=== PATIENT | female | born 1940 | race Caucasian/White ===

== ENCOUNTER 2016-04-13 23:27 | Observation (INO) | payer MEDICARE, BC ==
[~2016-04-13] VITALS: Ht 165.1 cm; Wt 75.0 kg
[~2016-04-13 23:27] MED LIST: ALBU6.7H INH; ALPR.25 PO; ASCO500C PO; BUDE100T PO; BUTACAP4 PO; COLE625 PO; ESTR.625 PO; LOMO PO; MEDR4PAK3 PO; PROZ20CA11 PO; SYNT75TA PO; ZOLP10TA3 PO
[2016-04-14] VITALS (11 sets, daily range): BP systolic 132–165; BP diastolic 67–89; PULSE 73–96; RESP 16–20; TEMP 97.8–101; O2SAT 93–98
[2016-04-14] MEDS ORDERED: SODIUM CHLORIDE 0.9% FLUSH 5 ML FLUSH IVF PRN (01:15)
--- NOTE | 2016-04-14 01:20 | PD ---
HPI Chief Complaint: GI Complaint Time Seen by Provider: 00:46 Travel History International Travel<30 days: No Contact w/Intl Traveler<30days: No Traveled to known affect area: No History of Present Illness HPI The patient is 75 year old female who presents to the [facility] emergency department with a history of nausea, vomiting, and diarrhea that began at 6 PM today. She reports that just prior to the onset of the symptoms she began to have generalized weakness at work. She reports that she ate dinner and then the symptoms began. She denies any known sick contacts. She denies any recent antibiotic use. She denies any foreign travel in the last 6 months or any unusual food intake. She reports that her stool has been watery and yellow. She reports that she's had too many episodes of diarrhea to count. She reports that she's had too many episodes of vomiting to count. She reports that she has abdominal cramping associated with this from the umbilicus down to the suprapubic area in the midline. The patient arrives with a fever with a MAXIMUM TEMPERATURE of 100.5. The patient reports that over the last 2 months she has had some bladder pain when her bladder becomes distended at night. She denies having any other dysuria, urinary frequency, or urinary urgency. The patient denies any other recent fevers, cough, congestion, neck pain, chest pain , shortness of breath, or neurologic symptoms. [facility] Past Medical History Narrative Medical The patient's past medical history is significant for anxiety and depression, history of hypothyroid disorder, history of headaches, irritable bowel syndrome. Anxiety: Yes Headaches: Yes Immunizations Current: Yes Thyroid Disease: Yes Past Surgical History Narrative Surgical The patient's past surgical history is significant for an appendectomy, cholecystectomy, hysterectomy, bladder lift Appendectomy: Yes Cholecystectomy: Yes Gynecologic Surgery: Yes (BLADDER LIFT) Hysterectomy: Yes (COMPLETE) Social History Alcohol Use: Yes Tobacco Use: No Substance Use: No Allergies-Medications (Allergen,Severity, Reaction): Coded Allergies: Codeine (Verified Allergy, Severe, Nausea/Vomiting, 07/06/15) Uncoded Allergies: pain medications (Allergy, Unknown, 07/06/15) Reported Meds & Prescriptions Reported Meds & Active Scripts Active Reported Prozac (Fluoxetine HCl) 20 Mg Cap 40 Mg PO DAILY Butal/Asa/Caff 1 Cap PO DAILY PRN Xanax 0.25 Mg (Alprazolam) Alprazolam 0.25 mg Tab 1 Tab PO TID Zolpidem Tartrate 10 Mg Tab 10 Mg PO HS Lomotil (Diphenoxylate HCl/Atropine) 1 Tab Tab 1 Tab PO BID Bupropion Hcl (Bupropion HCl) 100 Mg Tab 100 Mg PO BID Synthroid 75 mcg (Levothyroxine Sodium) 75 Mcg Tab 75 Mcg PO DAILY Welchol 625 Mg625 Mg 625 Mg Tab 1,250 Mg PO BID Review of Systems Except as stated in HPI: all other systems reviewed are Neg General / Constitutional: No: Fever Eyes: No: Visual changes HENT: No: Headaches Cardiovascular: No: Chest Pain or Discomfort Respiratory: No: Shortness of Breath Gastrointestinal: Positive: Nausea, Vomiting, Diarrhea, Abdominal Pain, Changes in Bowel Habits, No: Hematemesis, Hematochezia, Indigestion, Loss of Appetite Genitourinary: No: Dysuria Musculoskeletal: No: Pain Skin: No Rash Neurologic: No: Weakness Psychiatric: No: Depression Endocrine: No: Polydipsia Hematologic/Lymphatic: No: Easy Bruising Physical Exam Narrative General: The patient is a well-developed well-nourished female, uncomfortable appearing on examination, she episode of diarrhea on arrival back to the room. Head and Neck exam: Head is normocephalic atraumatic. Eyes: Pupils are equal round and reactive to light. Nose: Midline septum with pink mucous membranes Mouth: Dentition unremarkable. Tacky mucus membranes. Posterior oropharynx is not erythematous. No tonsillar hypertrophy. Uvula midline. Airway patent. Neck: No palpable lymphadenopathy. No nuchal rigidity. No thyromegaly. Cardiovascular: Regular rate and rhythm without murmurs, gallops, or rubs. Lungs: Clear to auscultation bilaterally. No wheezes, rhonchi, or rales. Abdomen: Soft, with tenderness on palpation along the lower aspect of the abdomen just below the umbilicus, no other tenderness on palpation of the other quadrants of the abdomen. No guarding, rebound, or rigidity. No tenderness on palpation of McBurney's point. Normal bowel sounds are audible. Negative Jimenes's sign. Extremities: No clubbing, cyanosis, or edema. 2+ pulses in all 4 extremities. No calf tenderness on palpation. Back: No spinous process tenderness to palpation. No costovertebral angle tenderness to palpation. Neurologic Exam: Grossly nonfocal. Skin Exam: No rash noted. Intact skin that is warm and dry. Data Data Last Documented VS Vital Signs Date Time Temp Pulse Resp B/P Pulse Ox O2 Delivery O2 Flow Rate FiO2 04/14/16 03:04 90 16 165/89 98 Room Air 04/14/16 01:20 100.5 Orders Complete Blood Count With Diff (04/14/16 00:56) Comprehensive Metabolic Panel (04/14/16 00:56) Urinalysis - C+S If Indicated (04/14/16 00:56) Iv Access Insert/Monitor (04/14/16 00:56) Oxygen Administration (04/14/16 00:56) Oximetry (04/14/16 00:56) Lipase (04/14/16 00:56) Lactic Acid (04/14/16 00:56) Influenzae A/B Antigen (04/14/16 00:56) B-Type Natriuretic Peptide (04/14/16 00:56) Coag Profile (04/14/16 00:56) Blood Culture (04/14/16 01:04) Ct Abd/Pel W Iv Contrast(Rout) (04/14/16 01:06) Ecg Monitoring (04/14/16 01:06) Sodium Chloride 0.9% Flush (Ns Flush) (04/14/16 01:15) Sodium Chlor 0.9% 1000 Ml Inj (Ns 1000 M (04/14/16 01:45) Ondansetron Inj (Zofran Inj) (04/14/16 01:45) Ketorolac Inj (Toradol Inj) (04/14/16 01:45) Iohexol 350 Inj (Omnipaque 350 Inj) (04/14/16 02:28) Sodium Chlor 0.9% 1000 Ml Inj (Ns 1000 M (04/14/16 02:45) Lactic Acid Sepsis Protocol (04/14/16 02:38) Stool Wbc (Leukocytes) (04/14/16 03:01) Enteric Path (Stool) (04/14/16 03:01) C Diff Toxin Pcr (04/14/16 03:01) Place In Observation (04/14/16 ) Vital Signs (Adult) Q4H (04/14/16 03:06) Activity Oob With Assistance (04/14/16 03:06) ^ [employer] Lieutenant / Telemetry .CONTINUOUS (04/14/16 03:06) Diet Npo (04/14/16 Breakfast) Sodium Chlor 0.9% 1000 Ml Inj (Ns 1000 M (04/14/16 03:06) Sodium Chloride 0.9% Flush (Ns Flush) (04/14/16 03:15) Sodium Chloride 0.9% Flush (Ns Flush) (04/14/16 09:00) Ondansetron Inj (Zofran Inj) (04/14/16 03:15) Basic Metabolic Panel (Bmp) (04/15/16 06:00) Complete Blood Count With Diff (04/15/16 06:00) Scd Bilateral/Knee High JEANETTE.BID (04/14/16 03:06) Naloxone Inj (Narcan Inj) (04/14/16 03:15) Ketorolac Inj (Toradol Inj) (04/14/16 03:15) Lorazepam Inj (Ativan Inj) (04/14/16 03:45) Admit Order (Ed Use Only) (04/14/16 03:32) Labs Laboratory Tests Test 04/14/16 04/14/16 04/14/16 01:05 01:10 03:05 B-Type Natriuretic Peptide 51 PG/ML White Blood Count 10.3 TH/MM3 Red Blood Count 4.79 MIL/MM3 Hemoglobin 14.3 GM/DL Hematocrit 41.3 % Mean Corpuscular Volume 86.2 FL Mean Corpuscular Hemoglobin 29.8 PG Mean Corpuscular Hemoglobin 34.5 % Concent Red Cell Distribution Width 14.4 % Platelet Count 194 TH/MM3 Mean Platelet Volume 7.9 FL Neutrophils (%) (Auto) 92.7 % Lymphocytes (%) (Auto) 2.8 % Monocytes (%) (Auto) 3.8 % Eosinophils (%) (Auto) 0.6 % Basophils (%) (Auto) 0.1 % Neutrophils # (Auto) 9.6 TH/MM3 Lymphocytes # (Auto) 0.3 TH/MM3 Monocytes # (Auto) 0.4 TH/MM3 Eosinophils # (Auto) 0.1 TH/MM3 Basophils # (Auto) 0.0 TH/MM3 CBC Comment DIFF FINAL Differential Comment Prothrombin Time 10.1 SEC Prothromb Time International 0.9 RATIO Ratio Activated Partial 19.9 SEC Thromboplast Time Sodium Level 140 MEQ/L Potassium Level 3.8 MEQ/L Chloride Level 107 MEQ/L Carbon Dioxide Level 18.1 MEQ/L Anion Gap 15 MEQ/L Blood Urea Nitrogen 21 MG/DL Creatinine 0.82 MG/DL Estimat Glomerular Filtration 68 ML/MIN Rate Random Glucose 139 MG/DL Lactic Acid Level 3.4 mmol/L 3.2 mmol/L Calcium Level 9.1 MG/DL Total Bilirubin 0.4 MG/DL Aspartate Amino Transf 27 U/L (AST/SGOT) Alanine Aminotransferase 27 U/L (ALT/SGPT) Alkaline Phosphatase 87 U/L Total Protein 7.6 GM/DL Albumin 4.1 GM/DL Lipase 136 U/L MDM Medical Decision Making Medical Screen Exam Complete: Yes Emergency Medical Condition: Yes Medical Record Reviewed: Yes Interpretation(s) Last Impressions Abdomen/Pelvis CT 04/14/16 0106 Signed Impressions: Service Date/Time: Thursday, April 14, 2016 02:10 - CONCLUSION: 1. Mildly distended proximal small bowel without a focal transition point or obstructing mass/lesion. 2. Prior cholecystectomy. Jorge Estrada Jr., MD Differential Diagnosis Acute pancreatitis, versus diverticulitis, versus gastroenteritis, versus dehydration, versus electrolyte abnormality, versus ischemic bowel Narrative Course During the course of the patients emergency department visit, the patients history, examination, and differential diagnosis were reviewed with the patient. The patient had IV access obtained and blood work sent for analysis. The patient was placed on a cardiac rehabilitation program director with oximetry and frequent blood pressure monitoring. The patient was started on normal saline 1 L IV fluid bolus. The patient had a lactic acid ordered, blood cultures 2 were ordered. The patient was given Zofran 4 mg IV. The patients laboratory studies were reviewed and remarkable for a white count of 10.3, hemoglobin 14.3, platelets 194 with 92.7 neutrophils, lymphocytes 2.8, CMP is remarkable for CO2 of 18.1, BUN 21, lupus 139, lactic acid 3.4, lipase 136, BNP is 51. The patient's lactic acid will be repeated in 2 hours. The patient was given a second liter of normal saline IV fluids. PT PTT unremarkable. Radiology studies were reviewed and remarkable for a CT scan of the abdomen and pelvis that shows a mildly distended proximal small bowel without focal transition point or obstructing mass or lesion. The patient continued to have frequent episodes of diarrhea. Stool was sent for stool studies including C. difficile toxin. The patient will be admitted to the hospital for continued IV fluids and pain management. The patient was agreeable with this plan. The patient reported feeling anxious and was given Ativan 0.5 mg IV times one. The patients results were discussed with the patient, including the plan of care. I explained that further testing and/ or monitoring is indicated based on the patients history, examination, and/ or laboratory findings. Therefore, I recommended admission for additional evaluation. The patient expressed understanding and was agreeable with this plan. The patient was admitted to the hospital in stable condition and sent to a bed under the care of the [facility]. Physician Communication Physician Communication The patient's case is discussed with Dr. Burrows who did agree to admit the patient for further evaluation and treatment at this time. Diagnosis Primary Impression: Abdominal pain Qualified Code: R10.30 - Lower abdominal pain Additional Impression: Nausea vomiting and diarrhea Admitting Information Admitting Physician Requests: Jo Ann Pino MD Apr 14, 2016 01:20
[2016-04-14 01:26] LABS: AUTOMATED NEUTROPHIL # 9.6 TH/MM3 (1.8-7.7); BASOPHIL % 0.1 % (0.0-2.0); EOSINOPHIL # 0.1 TH/MM3 (0-0.4); EOSINOPHIL % 0.6 % (0.0-4.0); HEMATOCRIT 41.3 % (35.0-46.0); HEMO FLAGS DIFF FINAL; LYMPH % 2.8 % (9.0-44.0); LYMPHOCYTE # 0.3 TH/MM3 (1.0-4.8); MEAN CELL VOLUME 86.2 FL (80.0-100.0); MEAN CORPUSCULAR HEMOGLOBIN 29.8 PG (27.0-34.0); MEAN CORPUSCULAR HGB CONC 34.5 % (32.0-36.0); MONO % 3.8 % (0.0-8.0); NEUT % 92.7 % (16.0-70.0); PLATELET COUNT 194 TH/MM3 (150-450); RED BLOOD COUNT 4.79 MIL/MM3 (4.00-5.30); RED CELL DISTRIBUTION WIDTH 14.4 % (11.6-17.2); WHITE BLOOD COUNT 10.3 TH/MM3 (4.0-11.0)
[2016-04-14 01:40] LABS: ALT (GPT) 27 U/L (10-53); ANION GAP 15 MEQ/L (5-15); AST (GOT) 27 U/L (15-37); BICARBONATE 18.1 MEQ/L (21.0-32.0); BLOOD UREA NITROGEN 21 MG/DL (7-18); CHLORIDE 107 MEQ/L (98-107); GLOMERULAR FILTRATION RATE 68 ML/MIN (>89); POTASSIUM 3.8 MEQ/L (3.5-5.1); SODIUM (NA) 140 MEQ/L (136-145)
[2016-04-14 01:42] LABS: ALKALINE PHOSPHATASE 87 U/L (45-117); TOTAL BILIRUBIN ADULT 0.4 MG/DL (0.2-1.0)
[2016-04-14 01:45] LABS: APTT (PATIENT) 19.9 SEC (24.3-30.1); INTERNATIONAL NORMALIZED RATIO 0.9 RATIO; PROTHROMBIN TIME - PATIENT 10.1 SEC (9.8-11.6)
[2016-04-14] MEDS ORDERED: SODIUM CHLOR 0.9% 1000 ML INJ 1,000 ML IV ONE ×2 (01:45→02:45)
[2016-04-14] MEDS ORDERED: KETOROLAC TROMETHAMINE 30 MG/ML (IVP) VIAL IV PUSH ONE (01:45)
[2016-04-14] MEDS ORDERED: ONDANSETRON HCL 4 MG/2 ML VIAL IV ONE (01:45)
[2016-04-14] MEDS ORDERED: IOHEXOL 350 MG/ML 10 ML VIAL (for RAD DIAG) IV ONE (02:28)
--- NOTE | 2016-04-14 02:35 | RADRPT ---
EXAM DATE/TIME: 04/14/2016 02:10 [facility] COMPARISON: No previous studies available for comparison. INDICATIONS : Abdomen pain with nausea and vomiting. IV CONTRAST: 85 cc Omnipaque 350 (iohexol) IV ORAL CONTRAST: No oral contrast ingested. RADIATION DOSE: 11.52 CTDIvol (mGy) MEDICAL HISTORY : None SURGICAL HISTORY : Appendectomy. Hysterectomy.Cholecystectomy. ENCOUNTER: Initial ACUITY: 1 day PAIN SCALE: 10/10 LOCATION: Bilateral abdomen TECHNIQUE: Volumetric scanning of the abdomen and pelvis was performed. Using automated exposure control and ad justment of the mA and/or kV according to patient size, radiation dose was kept as low as reasonably achievable to obtain optimal diagnostic quality images. FINDINGS: LOWER LUNGS: The visualized lower lungs are clear. LIVER: Homogeneous density without lesion. There is no dilation of the biliary tree. Gallbladder is surgica lly absent. SPLEEN: Normal size without lesion. PANCREAS: Within normal limits. KIDNEYS: Normal in size and shape. There is no mass, stone or hydronephrosis. ADRENAL GLANDS: Within normal limits. VASCULAR: There is no aortic aneurysm. BOWEL/MESENTERY: Fluid-filled loops of mildly dilated proximal small bowel observed. No focal transition point. No rachel e air or free fluid. Colon and stomach are unremarkable. ABDOMINAL WALL: Within normal limits. RETROPERITONEUM: There is no lymphadenopathy. BLADDER: No wall thickening or mass. REPRODUCTIVE: Within normal limits. INGUINAL: There is no lymphadenopathy or hernia. MUSCULOSKELETAL: Within normal limits for patient age. CONCLUSION: 1. Mildly distended proximal small bowel without a focal transition point or obstructing mass/lesion. 2. Prior cholecystectomy. Jorge Estrada Jr., MD on April 14, 2016 at 2:30 Board Certified Radiologist. This report was verified electronically.
[2016-04-14] MEDS ORDERED: SODIUM CHLORIDE 0.9% FLUSH 5 ML FLUSH FLUSH PRN (03:15)
[2016-04-14] MEDS ORDERED: ONDANSETRON HCL 4 MG/2 ML VIAL IVP PRN (03:15)
[2016-04-14] MEDS ORDERED: NALOXONE HCL 0.4 MG/ML AMP IV PRN (03:15)
[2016-04-14] MEDS: SODIUM CHLOR 0.9% 1000 ML INJ 1,000 ML IV SCH ×2 (03:29→13:06)
[2016-04-14] MEDS ORDERED: LORazepam 2 MG/ML VIAL IV PUSH ONE (03:45)
[2016-04-14 05:36] LABS: LACTIC ACID GHOST NOT REPORTABLE
[2016-04-14] MEDS ORDERED: ALPR.25 PO (06:39)
[2016-04-14] MEDS ORDERED: BUTA1CAP5 PO (06:39)
[2016-04-14] MEDS ORDERED: LOMO2.5T PO (06:39)
[2016-04-14] MEDS ORDERED: PROZ40CA PO (06:39)
[2016-04-14] MEDS ORDERED: LEVO.075 PO (06:39)
[2016-04-14] MEDS ORDERED: WELC625T2 PO (06:39)
[2016-04-14] MEDS ORDERED: ZOLP10TA3 PO (06:39)
[2016-04-14] MEDS ORDERED: BUPR100T4 PO (06:39)
[2016-04-14] MEDS: KETOROLAC TROMETHAMINE 30 MG/ML (IVP) VIAL IV PUSH PRN ×2 (06:58→13:37)
[2016-04-14] MEDS: SODIUM CHLORIDE 0.9% FLUSH 5 ML FLUSH FLUSH SCH ×2 (08:38→21:00)
[2016-04-14] MEDS ORDERED: HYDROmorphone HCL PF 1 MG/ML VIAL IV PUSH PRN (10:15)
[2016-04-14] MEDS ORDERED: ZOLPIDEM TARTRATE 10 MG TAB PO PRN (10:15)
[2016-04-14] MEDS: PANTOPRAZOLE SODIUM 40 MG VIAL IV PUSH SCH ×2 (10:51→21:04)
[2016-04-14] MEDS: ALPRAZolam 0.25 MG TAB PO PRN ×3 (11:00→19:37)
[2016-04-14] MEDS ORDERED: CIPROFLOXACIN 400 MG PREMIX 200 ML IV SCH (12:00)
[2016-04-14 12:07] LABS: BICARBONATE 18.9 MEQ/L (21.0-32.0); POTASSIUM 3.3 MEQ/L (3.5-5.1)
[2016-04-14] MEDS: metroNIDAZOLE 500 MG INJ 100 ML IV SCH ×2 (12:07→21:03)
[2016-04-14 12:15] LABS: C. DIFF EPI 027 PRESUMPTIVE NEGATIVE (NEGATIVE); C. DIFF TOXIN PCR POSITIVE (NEGATIVE)
--- NOTE | 2016-04-14 13:35 | PD.CONS ---
HPI History of Present Illness This is a 75 year old white female with past medical history of hypothyroidism, anxiety who presents with one day history of nausea, vomiting diarrhea, lower abd pain. Stools studies (+) for C-diff. This is her first episode. Denies recent abx use, travel or suspicious foods. 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 symptoms started yesterday after eating dinner ( spaghetti with meat balls) at her daughter house, but no one else got sick. She did have a bologna sandwich for lunch. At first, she didn't feel right, then the diarrhea started and that was followed by vomiting. No more vomiting today, but diarrhea continued through out the night and today, too many to count. Report associated fever of 100 yesterday and lower abdominal cramps. Denies hematemesis, melena or hematochezia. CT showed Mildly distended proximal small bowel without a focal transition point or obstructing mass/ lesion. Last colonoscopy was 5 years ago and that was normal. (April Krueger) PFSH Past Medical History Hypothyroidism Anxiety IBS Past Surgical History Appendectomy knee surgery cholecystectomy hysterectomy (April Krueger) Coded Allergies: Codeine (Verified Allergy, Severe, Nausea/Vomiting, 07/06/15) Uncoded Allergies: pain medications (Allergy, Unknown, 07/06/15) Medications Current Medications Medications (Trade) Dose Ordered Sig/Xander Route Start Time Stop Time Status Last Admin (NS 1000 ml Inj) 1,000 ml @ 100 mls/hr Q10H IV 04/14/16 03:06 04/14/16 03:29 (NS Flush) 2 ml UNSCH PRN FLUSH 04/14/16 03:15 (NS Flush) 2 ml BID FLUSH 04/14/16 09:00 04/14/16 08:38 (Zofran Inj) 4 mg Q6H PRN IVP 04/14/16 03:15 04/14/16 03:30 (Narcan Inj) 0.4 mg UNSCH PRN IV 04/14/16 03:15 Ketorolac Tromethamine 15 mg 15 mg Q6H PRN IV PUSH 04/14/16 03:15 04/19/16 03:14 04/14/16 06:58 Ciprofloxacin/ Dextrose 200 ml @ 200 mls/hr Q12H IV 04/14/16 12:00 04/14/16 11:30 (Flagyl 500 Mg Inj) 100 ml @ 100 mls/hr Q8H IV 04/14/16 12:00 04/14/16 12:07 (Protonix Inj) 40 mg Q12HR IV PUSH 04/14/16 10:15 04/14/16 10:51 (Xanax) 0.25 mg Q4H PRN PO 04/14/16 10:15 04/14/16 11:00 (Wellbutrin) 100 mg BID PO 04/14/16 21:00 (PROzac) 40 mg DAILY PO 04/15/16 09:00 (Synthroid) 75 mcg DAILY@06 PO 04/15/16 06:00 (Ambien) 10 mg HS PRN PO 04/14/16 10:15 (Dilaudid Pf Inj) 0.5 mg Q4H PRN IV PUSH 04/14/16 10:15 Family History Father had colon cancer Social History Drinks on the weekend Quit smoking 30 years ago No illicit drug use (April Krueger) Review of Systems Constitutional: COMPLAINS OF: Fatigue, Fever, Chills Endocrine: DENIES: Polyuria Eyes: DENIES: Double Vision Ears, nose, mouth, throat: DENIES: Hoarseness Respiratory: DENIES: Shortness of breath Cardiovascular: DENIES: Lower Extremity Edema Gastrointestinal: COMPLAINS OF: Abdominal pain, Diarrhea, Nausea, Vomiting, DENIES: Black stools, Bloody stools, Constipation, Difficulty Swallowing, Anorexia, Odynophagia, Swelling of Abdomen, Heartburn, Hematemesis Genitourinary: DENIES: Hematuria Musculoskeletal: DENIES: Neck pain Integumentary: DENIES: Jaundice Hematologic/lymphatic: DENIES: Bruising Immunologic/allergic: DENIES: Eczema Neurologic: DENIES: Abnormal gait Psychiatric: COMPLAINS OF: Anxiety (April Krueger) GI Exam Vitals I&O Vital Signs Date Time Temp Pulse Resp B/P Pulse Ox O2 Delivery O2 Flow Rate FiO2 04/14/16 09:50 99.0 81 16 149/70 93 Room Air 04/14/16 07:50 16 04/14/16 07:15 99.0 96 18 152/67 98 Room Air 04/14/16 05:41 101.0 75 18 148/78 96 Room Air 04/14/16 03:04 90 16 165/89 98 Room Air 04/14/16 01:22 96 Room Air 04/14/16 01:22 18 04/14/16 01:20 100.5 95 18 160/78 96 Imaging Last Impressions Abdomen/Pelvis CT 04/14/16 0106 Signed Impressions: Service Date/Time: Thursday, April 14, 2016 02:10 - CONCLUSION: 1. Mildly distended proximal small bowel without a focal transition point or obstructing mass/lesion. 2. Prior cholecystectomy. Jorge Estrada Jr., MD Laboratory Test 04/14/16 04/14/16 04/14/16 04/14/16 01:05 01:10 03:05 06:10 B-Type Natriuretic Peptide 51 PG/ML White Blood Count 10.3 TH/MM3 Red Blood Count 4.79 MIL/MM3 Hemoglobin 14.3 GM/DL Hematocrit 41.3 % Mean Corpuscular Volume 86.2 FL Mean Corpuscular Hemoglobin 29.8 PG Mean Corpuscular Hemoglobin 34.5 % Concent Red Cell Distribution Width 14.4 % Platelet Count 194 TH/MM3 Mean Platelet Volume 7.9 FL Neutrophils (%) (Auto) 92.7 % Lymphocytes (%) (Auto) 2.8 % Monocytes (%) (Auto) 3.8 % Eosinophils (%) (Auto) 0.6 % Basophils (%) (Auto) 0.1 % Neutrophils # (Auto) 9.6 TH/MM3 Lymphocytes # (Auto) 0.3 TH/MM3 Monocytes # (Auto) 0.4 TH/MM3 Eosinophils # (Auto) 0.1 TH/MM3 Basophils # (Auto) 0.0 TH/MM3 CBC Comment DIFF FINAL Differential Comment Prothrombin Time 10.1 SEC Prothromb Time International 0.9 RATIO Ratio Activated Partial 19.9 SEC Thromboplast Time Sodium Level 140 MEQ/L Potassium Level 3.8 MEQ/L Chloride Level 107 MEQ/L Carbon Dioxide Level 18.1 MEQ/L Anion Gap 15 MEQ/L Blood Urea Nitrogen 21 MG/DL Creatinine 0.82 MG/DL Estimat Glomerular Filtration 68 ML/MIN Rate Random Glucose 139 MG/DL Lactic Acid Level 3.4 mmol/L 3.2 mmol/L 2.6 mmol/L Calcium Level 9.1 MG/DL Total Bilirubin 0.4 MG/DL Aspartate Amino Transf 27 U/L (AST/SGOT) Alanine Aminotransferase 27 U/L (ALT/SGPT) Alkaline Phosphatase 87 U/L Total Protein 7.6 GM/DL Albumin 4.1 GM/DL Lipase 136 U/L Stool C. difficile Toxin (PCR) POSITIVE Stl C. difficile Toxin PRESUMPTIVE Epiderm 027 NEGATIVE Test 04/14/16 11:21 Sodium Level 141 MEQ/L Potassium Level 3.3 MEQ/L Chloride Level 111 MEQ/L Carbon Dioxide Level 18.9 MEQ/L Anion Gap 11 MEQ/L Blood Urea Nitrogen 17 MG/DL Creatinine 0.70 MG/DL Estimat Glomerular Filtration 82 ML/MIN Rate Random Glucose 131 MG/DL Calcium Level 7.7 MG/DL Date/Time Procedure Status Source Growth 04/14/16 03:05 Stool Pus (EUGENIA) Received Stool Stool Pending 04/14/16 03:05 Received Stool Stool Pending 04/14/16 01:10 Aerobic Blood Culture Received Blood Peripheral Pending 04/14/16 01:10 Anaerobic Blood Culture Received Blood Peripheral Pending 04/14/16 01:05 Influenza Types A,B Antigen (EUGENIA) - Final Complete Nasal Aspirate NEGATIVE FOR FLU A AND B ANTIGEN.... Physical Examination HEENT: normocephalic; atraumatic; no jaundice. NECK: Neck is supple, no JVD, no lymphadenopathy. CHEST: Chest is clear to auscultation and percussion. CARDIAC: Regular rate and rhythm with no murmur gallop or rubs. ABDOMEN: Soft, nondistended, lower abd tenderness ; no hepatosplenomegaly; bowel sounds are present in all four quadrants. EXTREMITIES: No clubbing, cyanosis, or edema. SKIN: Normal; no rash; no jaundice. SLAB WORKER: No focal deficits; alert and oriented times three. (April Krueger) Assessment and Plan Plan - C-diff colitis, (+) for C-diff PCR, (-) for tox Epid 027. Stool cx pending Denies recent abx use, travel or suspicious foods. 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 symptoms started yesterday after eating dinner at her daughter house, but no one else got sick. At first, she didn't feel right, then the diarrhea started and that was followed by vomiting. No more vomiting today, but diarrhea continued through out the night and today, too many to count. Report associated fever of 100 yesterday and lower abdominal cramps. Denies hematemesis, melena or hematochezia. CT showed Mildly distended proximal small bowel without a focal transition point or obstructing mass/lesion. Last colonoscopy was 5 years ago and that was normal. - Hypokalemia secondary to severe diarrhea per attending - hypothyroidism, anxiety per attending Plan: - Clear liquids - Await stool cx - DC Cipro - Cont. Flagyl - Will add Vanco - Monitor labs - Supportive care - Patient seen and examined by Dr. Gonzalez and myself and this note is written on his behalf. (April Krueger) Physician Comments Patient was seen and examined, agree with above note and plan, labs for AM, continue Abx (Arnav Gonzalez MD) April Krueger Apr 14, 2016 13:35 Arnav Gonzalez MD Apr 14, 2016 20:40
--- NOTE | 2016-04-14 16:19 | EKG ---
Date Performed: 04/14/2016 Time Performed: 12:20:11 PTAGE: 75 years EKG: Sinus rhythm NORMAL ECG INTERPRETATION BASED ON A DEFAULT AGE OF 40 YEARS NO SIGNIFICANT CHANGE FROM PRIOR ELECTR OCARDIOGRAM. PREVIOUS TRACING : 07/06/2015 23.54 DOCTOR: Maximus Velasco Interpretating Date/Time 04/14/2016 16:18:50
[2016-04-14] MEDS: VANCOMYCIN 500 MG VIAL (FOR ORAL USE ONLY) PO SCH ×2 (17:37→21:04)
--- NOTE | 2016-04-14 18:44 | HHI.HP ---
[facility] Chris Ayala MD Admission Diagnosis DEHYDRATION, DIARRHEA, SMALL BOWEL DILITATION Diagnoses: Travel History International Travel<30 Days: No Contact w/Intl Traveler <30 Da: No Traveled to Known Affected Are: No History of Present Illness Patient is a pleasant 75-year-old female with a history of depression, hypothyroidism, anxiety, past smoker with [id number] history of smoking, who presents with acute nausea, nonbloody vomiting, crampy, nonradiating bilateral lower abdominal pain, chills, and profuse watery diarrhea. She says that it suddenly hit her while she was driving back from her daughter's house around 7 PM last night. She had spaghetti with her family, however nobody else is sick. She did have a bologna sandwich for lunch. She denies any chest pain, shortness of breath, lightheadedness, dizziness, however does report diffuse weakness. She reports previously feeling fine. She denies any recent course of antibiotics. She denies any history of Clostridium difficile. CT abdomen shows duodenal thickening. [place] virus assay of stool is positive. Clostridium difficile PCR of stool is also positive. Review of Systems Other performed and negative except for history of present illness and past medical history. Past Family Social History Past Medical History Depression Chronic headaches. She takes Fioricet for this Hypothyroidism on replacement Anxiety IBS Past Surgical History Appendectomy knee surgery cholecystectomy hysterectomy bladder lift Reported Medications Reported Meds & Active Scripts Active Reported Prozac (Fluoxetine HCl) 20 Mg Cap 40 Mg PO DAILY Butal/Asa/Caff 1 Cap PO DAILY PRN Xanax 0.25 Mg (Alprazolam) Alprazolam 0.25 mg Tab 1 Tab PO TID Zolpidem Tartrate 10 Mg Tab 10 Mg PO HS Lomotil (Diphenoxylate HCl/Atropine) 1 Tab Tab 1 Tab PO BID Bupropion Hcl (Bupropion HCl) 100 Mg Tab 100 Mg PO BID Synthroid 75 mcg (Levothyroxine Sodium) 75 Mcg Tab 75 Mcg PO DAILY Welchol 625 Mg625 Mg 625 Mg Tab 1,250 Mg PO BID Allergies: Coded Allergies: Codeine (Verified Allergy, Severe, Nausea/Vomiting, 07/06/15) Uncoded Allergies: pain medications (Allergy, Unknown, 07/06/15) Family History Father had colon cancer , passing away at age 70 mother from heart disease at age 69 Social History Patient smoked 2 packs per day from age 23 to age 42. [id number] history. Patient drinks occasionally, 2 drinks about twice per week Denies any illicit drugs. Physical Exam Vital Signs Vital Signs Date Time Temp Pulse Resp B/P Pulse Ox O2 Delivery O2 Flow Rate FiO2 04/14/16 17:00 132/75 04/14/16 14:36 73 04/14/16 14:26 99.5 75 20 160/71 93 04/14/16 09:50 99.0 81 16 149/70 93 Room Air 04/14/16 07:50 16 04/14/16 07:15 99.0 96 18 152/67 98 Room Air 04/14/16 05:41 101.0 75 18 148/78 96 Room Air 04/14/16 03:04 90 16 165/89 98 Room Air 04/14/16 01:22 96 Room Air 04/14/16 01:22 18 04/14/16 01:20 100.5 95 18 160/78 96 Physical Exam GENERAL: This is a well-nourished, well-developed patient,appears uncomfortable. Alert and oriented x3. SKIN: No rashes, ecchymoses or lesions. Cool and dry. HEAD: Atraumatic. Normocephalic. No temporal or scalp tenderness. EYES: Pupils equal round and reactive. Extraocular motions intact. No scleral icterus. No injection or drainage. ENT: Nose without bleeding, purulent drainage or septal hematoma. Throat without erythema, tonsillar hypertrophy or exudate. Uvula midline. Airway patent. NECK: Trachea midline. No JVD or lymphadenopathy. Supple, nontender, no meningeal signs. CARDIOVASCULAR: Regular rate and rhythm without murmurs, gallops, or rubs. RESPIRATORY: Clear to auscultation. Breath sounds equal bilaterally. No wheezes , rales, or rhonchi. GASTROINTESTINAL: mild diffuse abdominal tenderness. Positive bowel sounds. No rebound or guarding.no abdominal bruit. MUSCULOSKELETAL: Extremities without clubbing, cyanosis, or edema. No joint tenderness, effusion, or edema noted. No calf tenderness. Negative Homans sign bilaterally. NEUROLOGICAL: Awake and alert. Cranial nerves II through XII intact. Motor and sensory grossly within normal limits. Five out of 5 muscle strength in all muscle groups. Normal speech. Laboratory Laboratory Tests Test 04/14/16 04/14/16 04/14/16 04/14/16 01:05 01:10 03:05 06:10 B-Type Natriuretic Peptide 51 White Blood Count 10.3 Red Blood Count 4.79 Hemoglobin 14.3 Hematocrit 41.3 Mean Corpuscular Volume 86.2 Mean Corpuscular Hemoglobin 29.8 Mean Corpuscular Hemoglobin 34.5 Concent Red Cell Distribution Width 14.4 Platelet Count 194 Mean Platelet Volume 7.9 Neutrophils (%) (Auto) 92.7 Lymphocytes (%) (Auto) 2.8 Monocytes (%) (Auto) 3.8 Eosinophils (%) (Auto) 0.6 Basophils (%) (Auto) 0.1 Neutrophils # (Auto) 9.6 Lymphocytes # (Auto) 0.3 Monocytes # (Auto) 0.4 Eosinophils # (Auto) 0.1 Basophils # (Auto) 0.0 CBC Comment DIFF FINAL Differential Comment Prothrombin Time 10.1 Prothromb Time International 0.9 Ratio Activated Partial 19.9 Thromboplast Time Sodium Level 140 Potassium Level 3.8 Chloride Level 107 Carbon Dioxide Level 18.1 Anion Gap 15 Blood Urea Nitrogen 21 Creatinine 0.82 Estimat Glomerular Filtration 68 Rate Random Glucose 139 Lactic Acid Level 3.4 3.2 2.6 Calcium Level 9.1 Total Bilirubin 0.4 Aspartate Amino Transf 27 (AST/SGOT) Alanine Aminotransferase 27 (ALT/SGPT) Alkaline Phosphatase 87 Total Protein 7.6 Albumin 4.1 Lipase 136 Stool C. difficile Toxin (PCR) POSITIVE Stl C. difficile Toxin PRESUMPTIVE Epiderm 027 NEGATIVE Test 04/14/16 11:21 Sodium Level 141 Potassium Level 3.3 Chloride Level 111 Carbon Dioxide Level 18.9 Anion Gap 11 Blood Urea Nitrogen 17 Creatinine 0.70 Estimat Glomerular Filtration 82 Rate Random Glucose 131 Calcium Level 7.7 Date/Time Procedure Status Source Growth 04/14/16 03:05 Stool Pus (EUGENIA) - Final Complete Stool Stool NO WBC'S SEEN 04/14/16 03:05 - Final Complete Stool Stool Norovirus 04/14/16 01:10 Aerobic Blood Culture Received Blood Peripheral Pending 04/14/16 01:10 Anaerobic Blood Culture Received Blood Peripheral Pending 04/14/16 01:05 Influenza Types A,B Antigen (EUGENIA) - Final Complete Nasal Aspirate NEGATIVE FOR FLU A AND B ANTIGEN.... Result Diagram: 04/14/16 0110 04/14/16 1121 Imaging Last Impressions Abdomen/Pelvis CT 04/14/16 0106 Signed Impressions: Service Date/Time: Thursday, April 14, 2016 02:10 - CONCLUSION: 1. Mildly distended proximal small bowel without a focal transition point or obstructing mass/lesion. 2. Prior cholecystectomy. Jorge Estrada Jr., MD Septic Shock Reassessment Heart: Regular rate and rhythm Lungs: Clear Skin: Warm Peripheral Pulses: Bounding Right Radial Bounding Left Radial Bounding Right Dorsalis Pedis Bounding Left Dorsalis Pedis Capillary Refill: <2 seconds Assessment and Plan Assessment and Plan //Severe sepsis on admission. Tachycardia. Fever up to 101. Duodenitis on CT abdomen. - Lactic acid elevated 3.4 on admission. Down to 2.6. - Positive clostridium difficile -Positive norovirus - Continue antibiotics and IV fluids. //Acute norovirus infection - Patient's acute onset of vomiting, abdominal pain, diarrhea, fevers-->classic for norovirus. - Positive viral assay of stool. - Supportive care. Zofran when necessary. IV fluids. //Possible severe C. difficile diarrhea. -Clostridium difficile PCR positive. - Although PCR is positive, clostridium difficile can be a colonizer of stool. Norovirus cannot. - Nevertheless. Due to patients acute presentation, will continue treatment for severe C. difficile with by mouth vancomycin and IV Flagyl. Even though this is likely not an acute C. difficile infection, given the PCR is positive and she is on antibiotics, would be prudent to complete a course of treatment. //Lactic acidosis. Secondary to dehydration, sepsis. Improving with fluids. //Non-anion gap metabolic acidosis. Secondary to bicarbonate losses from diarrhea. Supportive care. Monitor. //Hypokalemia. Secondary to diarrhea. Add Potassium to fluids. Depression. Chronic. Continue home medications Hypothyroidism. Chronic. Continue Synthroid Anxiety. Chronic. Continue benzodiazepine as needed. Chronic headaches. None currently. Monitor. //Prophylaxis. Lovenox. Discussed Condition With patient, nurse, daughter at bedside. Physician Certification 2 Midnight Certification Type: Admission for Inpatient Services Order for Inpatient Services The services are ordered in accordance with Medicare regulations or non- Medicare payer requirements, as applicable. In the case of services not specified as inpatient-only, they are appropriately provided as inpatient services in accordance with the 2-midnight benchmark. Estimated LOS (days): 3 days is the estimated time the patient will need to remain in the hospital, assuming treatment plan goals are met and no additional complications. Post-Hospital Plan: [place] Alexandru Hernandez MD Apr 14, 2016 18:44
[2016-04-14] MEDS ORDERED: ENOXAPARIN SODIUM 40 MG/0.4 ML SYRINGE SQ SCH (20:00)
[2016-04-14] MEDS: D5-1/2 NS + KCL 10 MEQ INJ 1,000 ML IV SCH (21:03)
[2016-04-14] MEDS: buPROPion HCL 100 MG TAB PO SCH (21:05)
[2016-04-14] MEDS ORDERED: POTASSIUM CHLORIDE 10 MEQ CONTROLLED RELEASE TAB PO ONE (21:30)
[2016-04-15 00:27] VITALS: BP 140/67; PULSE 83; RESP 20; TEMP 97.8; O2SAT 94
[2016-04-15] MEDS: ALPRAZolam 0.25 MG TAB PO PRN ×2 (03:13→09:46)
[2016-04-15] MEDS: metroNIDAZOLE 500 MG INJ 100 ML IV SCH (03:15)
[2016-04-15 04:20] VITALS: BP 128/60; PULSE 79; RESP 20; TEMP 97.8; O2SAT 95
[2016-04-15] MEDS ORDERED: LEVOTHYROXINE SODIUM 75 MCG TAB PO SCH (06:00)
[2016-04-15 08:00] VITALS: BP 138/64; PULSE 71; PULSE 85; RESP 18; TEMP 98.2; O2SAT 95
[2016-04-15] MEDS: buPROPion HCL 100 MG TAB PO SCH (09:00)
[2016-04-15] MEDS ORDERED: FLUoxetine HCL 20 MG CAP PO SCH (09:00)
--- NOTE | 2016-04-15 09:28 | HHI.PR ---
Subjective Remarks Follow up for c.diff colitis. The patient reports multiple loose BMs throughout the night, approximately 4 episodes since midnight last night. Nausea has improved, no vomiting. No fevers or chills. No abdominal pain currently. She is very upset this morning, feels very anxious and claustrophobic in Gpod room. She wants transfer eric. She is also upset about not receiving her morning medications yet. She wants to go home eric. Objective Vitals Vital Signs Date Time Temp Pulse Resp B/P Pulse Ox O2 Delivery O2 Flow Rate FiO2 04/15/16 04:20 97.8 79 20 128/60 95 04/15/16 00:27 97.8 83 20 140/67 94 04/14/16 21:15 97.8 94 20 153/67 94 04/14/16 20:20 81 04/14/16 17:00 132/75 04/14/16 14:36 73 04/14/16 14:26 99.5 75 20 160/71 93 04/14/16 09:50 99.0 81 16 149/70 93 Room Air I/O 04/14/16 04/14/16 04/14/16 04/15/16 04/15/16 04/15/16 07:00 15:00 23:00 07:00 15:00 23:00 # Voids 1 # Bowel Movements 1 2 Result Diagram: 04/14/16 0110 04/14/16 1121 Imaging Last Impressions Abdomen/Pelvis CT 04/14/16 0106 Signed Impressions: Service Date/Time: Thursday, April 14, 2016 02:10 - CONCLUSION: 1. Mildly distended proximal small bowel without a focal transition point or obstructing mass/lesion. 2. Prior cholecystectomy. Jorge Estrada Jr., MD Objective Remarks GENERAL: Well-nourished, well-developed elderly female patient in moderate distress, very anxious and upset. SKIN: Warm and dry. No rash. HEAD: Normocephalic. Atraumatic. EYES: Pupils equal and round. No scleral icterus. No injection or drainage. ENT: No nasal bleeding or discharge. Mucous membranes pink and moist. NECK: Supple. Trachea midline. CARDIOVASCULAR: Regular rate and rhythm. S1, S2 noted. No murmur appreciated. RESPIRATORY: No accessory muscle use. Clear to auscultation. Breath sounds equal bilaterally. GASTROINTESTINAL: Abdomen soft, non-tender, nondistended. Normoactive bowel sounds x4. MUSCULOSKELETAL: No obvious deformities. Extremities without clubbing, cyanosis , or edema. NEUROLOGICAL: Awake and alert. No obvious cranial nerve deficits. Motor grossly within normal limits. Normal speech. PSYCHIATRIC: Anxious/tearful mood; insight and judgment normal. Medications and IVs Current Medications Medications (Trade) Dose Ordered Sig/Xander Route Start Time Stop Time Status Last Admin (NS Flush) 2 ml UNSCH PRN FLUSH 04/14/16 03:15 (NS Flush) 2 ml BID FLUSH 04/14/16 09:00 04/14/16 08:38 (Zofran Inj) 4 mg Q6H PRN IVP 04/14/16 03:15 04/14/16 03:30 (Narcan Inj) 0.4 mg UNSCH PRN IV 04/14/16 03:15 Ketorolac Tromethamine 15 mg 15 mg Q6H PRN IV PUSH 04/14/16 03:15 04/19/16 03:14 04/14/16 13:37 (Flagyl 500 Mg Inj) 100 ml @ 100 mls/hr Q8H IV 04/14/16 12:00 04/15/16 03:15 (Protonix Inj) 40 mg Q12HR IV PUSH 04/14/16 10:15 04/14/16 21:04 (Xanax) 0.25 mg Q4H PRN PO 04/14/16 10:15 04/15/16 03:13 (Wellbutrin) 100 mg BID PO 04/14/16 21:00 04/14/16 21:05 (PROzac) 40 mg DAILY PO 04/15/16 09:00 (Synthroid) 75 mcg DAILY@06 PO 04/15/16 06:00 04/15/16 05:13 (Ambien) 10 mg HS PRN PO 04/14/16 10:15 04/14/16 21:05 (Dilaudid Pf Inj) 0.5 mg Q4H PRN IV PUSH 04/14/16 10:15 Vancomycin HCl 500 mg 500 mg QID PO 04/14/16 18:00 04/14/16 21:04 (D5-1/2 NS + KCl 10 Meq Inj) 1,000 ml @ 85 mls/hr [id number] IV 04/14/16 20:00 04/14/16 21:03 (Lovenox Inj) 40 mg Q24H SQ 04/14/16 20:00 04/14/16 20:00 Urinary Catheter: No Vascular Central Line Catheter: No A/P Assessment and Plan 75-year-old female with a history of depression, hypothyroidism, anxiety, past smoker with [id number] history of smoking, presents with acute nausea, nonbloody vomiting, crampy, nonradiating bilateral lower abdominal pain, chills , and profuse watery diarrhea. Severe sepsis: on admission with tachycardia, fever 101, Lactate 3.4. Secondary to C.diff colitis and +norovirus, see treatment below. Continue abx and IVF. Lactate improving, now 2.6. Monitor labs, no further fevers. Acute norovirus infection: Patient's acute onset of vomiting, abdominal pain, diarrhea, fevers-->classic for norovirus. Positive viral assay of stool. Supportive care. Zofran prn. IV fluids. Severe C. difficile colitis: Clostridium difficile PCR positive. Continue treatment for severe C. difficile with po vancomycin and IV Flagyl. GI consulted , appreciate recommendations. Advance diet to regular today. Lactic acidosis: Secondary to dehydration, sepsis. Improving with fluids. Non-anion gap metabolic acidosis: Secondary to bicarbonate losses from diarrhea. Supportive care. Monitor. Hypokalemia: Secondary to diarrhea. Add Potassium to fluids and given po KCl. Repeat labs today pending. Depression: Chronic. Continue patient's Buproprion and Prozac. Hypothyroidism: Chronic. Continue Synthroid Anxiety: Acute on Chronic. Patient very upset and agitated in small observation room today. Continue patient's xanax prn. Chronic headaches. None currently. Monitor. DVT Prophylaxis. Lovenox. Written by Jolie Clark, acting as scribe for Dr. Aparicio on 04/15/16 at 09:40. The documentation accurately reflects the work performed [id number] by me on at 0940 Discharge Planning Discussed with RN and bed placement, no beds available at this time on any floor throughout [place] at this time. Bed placement aware of the stat transfer order placed. Jolie Clark PA-C Apr 15, 2016 09:28 Henry Aparicio MD Apr 15, 2016 16:34
[2016-04-15 09:34] LABS: AUTOMATED NEUTROPHIL # 2.7 TH/MM3 (1.8-7.7); BASOPHIL % 0.3 % (0.0-2.0); EOSINOPHIL # 0.1 TH/MM3 (0-0.4); EOSINOPHIL % 1.7 % (0.0-4.0); HEMATOCRIT 34.5 % (35.0-46.0); HEMO FLAGS DIFF FINAL; LYMPH % 18.6 % (9.0-44.0); LYMPHOCYTE # 0.7 TH/MM3 (1.0-4.8); MEAN CELL VOLUME 87.7 FL (80.0-100.0); MEAN CORPUSCULAR HEMOGLOBIN 29.1 PG (27.0-34.0); MEAN CORPUSCULAR HGB CONC 33.2 % (32.0-36.0); MONO % 11.6 % (0.0-8.0); NEUT % 67.8 % (16.0-70.0); PLATELET COUNT 174 TH/MM3 (150-450); RED BLOOD COUNT 3.94 MIL/MM3 (4.00-5.30); RED CELL DISTRIBUTION WIDTH 14.6 % (11.6-17.2); WHITE BLOOD COUNT 3.9 TH/MM3 (4.0-11.0)
[2016-04-15] MEDS: PANTOPRAZOLE SODIUM 40 MG VIAL IV PUSH SCH (09:49)
[2016-04-15] MEDS: VANCOMYCIN 500 MG VIAL (FOR ORAL USE ONLY) PO SCH ×3 (09:50→17:00)
[2016-04-15] MEDS: SODIUM CHLORIDE 0.9% FLUSH 5 ML FLUSH FLUSH SCH (09:50)
[2016-04-15] MEDS: D5-1/2 NS + KCL 10 MEQ INJ 1,000 ML IV SCH (09:52)
[2016-04-15 09:56] LABS: BICARBONATE 20.8 MEQ/L (21.0-32.0); POTASSIUM 3.8 MEQ/L (3.5-5.1)
[2016-04-15] MEDS ORDERED: ESTR.625 PO (10:41)
[2016-04-15] MEDS ORDERED: ESTROGENS CONJUGATED 0.625 MG TAB PO SCH (10:45)
[2016-04-15 12:27] VITALS: BP 153/70; PULSE 71; RESP 18; TEMP 96; O2SAT 95
--- NOTE | 2016-04-15 12:45 | HHI.GIFU ---
Subjective Remarks Resting in bed. Daughter at bedside. States she is feeling very well and would like to go home. Has not had solid foods yet. No n/v. No diarrhea since last night. No bleeding. No abdominal pain. Objective Vitals I&O Vital Signs Date Time Temp Pulse Resp B/P Pulse Ox O2 Delivery O2 Flow Rate FiO2 04/15/16 12:27 96.0 71 18 153/70 95 04/15/16 08:00 98.2 71 18 138/64 95 04/15/16 04:20 97.8 79 20 128/60 95 04/15/16 00:27 97.8 83 20 140/67 94 04/14/16 21:15 97.8 94 20 153/67 94 04/14/16 20:20 81 04/14/16 17:00 132/75 04/14/16 14:36 73 04/14/16 14:26 99.5 75 20 160/71 93 I/O 04/14/16 04/14/16 04/14/16 04/15/16 04/15/16 04/15/16 07:00 15:00 23:00 07:00 15:00 23:00 # Voids 1 # Bowel Movements 1 2 Laboratory Laboratory Tests Test 04/15/16 09:10 White Blood Count 3.9 Red Blood Count 3.94 Hemoglobin 11.5 Hematocrit 34.5 Mean Corpuscular Volume 87.7 Mean Corpuscular Hemoglobin 29.1 Mean Corpuscular Hemoglobin 33.2 Concent Red Cell Distribution Width 14.6 Platelet Count 174 Mean Platelet Volume 7.6 Neutrophils (%) (Auto) 67.8 Lymphocytes (%) (Auto) 18.6 Monocytes (%) (Auto) 11.6 Eosinophils (%) (Auto) 1.7 Basophils (%) (Auto) 0.3 Neutrophils # (Auto) 2.7 Lymphocytes # (Auto) 0.7 Monocytes # (Auto) 0.5 Eosinophils # (Auto) 0.1 Basophils # (Auto) 0.0 CBC Comment DIFF FINAL Differential Comment Sodium Level 144 Potassium Level 3.8 Chloride Level 114 Carbon Dioxide Level 20.8 Anion Gap 9 Blood Urea Nitrogen 8 Creatinine 0.62 Estimat Glomerular Filtration 94 Rate Random Glucose 118 Calcium Level 8.2 Date/Time Procedure Status Source Growth 04/14/16 03:05 Stool Pus (EUGENIA) - Final Complete Stool Stool NO WBC'S SEEN 04/14/16 03:05 - Final Complete Stool Stool Norovirus 04/14/16 01:10 Aerobic Blood Culture - Preliminary Resulted Blood Peripheral NO GROWTH IN 1 DAY 04/14/16 01:10 Anaerobic Blood Culture - Preliminary Resulted Blood Peripheral NO GROWTH IN 1 DAY 04/14/16 01:05 Influenza Types A,B Antigen (EUGENIA) - Final Complete Nasal Aspirate NEGATIVE FOR FLU A AND B ANTIGEN.... Imaging Last Impressions Abdomen/Pelvis CT 04/14/16 0106 Signed Impressions: Service Date/Time: Tuesday, April 14, 2016 02:10 - CONCLUSION: 1. Mildly distended proximal small bowel without a focal transition point or obstructing mass/lesion. 2. Prior cholecystectomy. Jorge Estrada Jr., MD Physical Exam HEENT: Normocephalic; atraumatic; no jaundice. Throat is clear. NECK: Neck is supple, no JVD, no lymphadenopathy. CHEST: CTA CARDIAC: RRR ABDOMEN: Soft, nondistended, nontender; no hepatosplenomegaly; bowel sounds are present in all four quadrants. EXTREMITIES: No clubbing, cyanosis, or edema. SKIN: Normal; no rash; no jaundice. [employer] PAINTER: No focal deficits; alert and oriented times three. Assessment and Plan Plan ASSESSMENT: - C-diff colitis, 1st episode. Epid 027 (-). Abdomen/Pelvis CT (04/14/16)-----> 1. Mildly distended proximal small bowel without a focal transition point or obstructing mass/lesion. 2. Prior cholecystectomy. Last colonoscopy was 5 years ago and that was normal. Pt on Flagyl/Vanco. Much improved. Clinically doing very well, no further diarrhea, no abdominal pain, no bleeding, no n/v. No leukocytosis. Will change Flagyl to po and advance diet. If she tolerates this, it is okay from GI standpoint for her to go home on Flagyl 500mg po q8h x 10 days total. - Hypokalemia. Improved. - hypothyroidism, anxiety per attending Plan: - Regular diet - Change flagyl to po - Cont. Vanco inpatient - If tolerates po flagyl and diet, okay from GI standpoint for her to be discharged on Flagyl 500mg q8h x 10 days total. - FU CELIA 2 weeks - D/W patient daughter CDiff precautions - Patient seen and examined by Dr. Gonzalez and myself and this note is written on his behalf. Sarah Pena Apr 15, 2016 12:45
[2016-04-15] MEDS ORDERED: metroNIDAZOLE 500 MG TAB PO SCH (13:00)
[2016-04-15] MEDS ORDERED: METR-1 PO (14:34)
[2016-04-15] MEDS ORDERED: PANT40TA3 PO (14:34)
--- NOTE | 2016-04-15 14:35 | HHI.DCPOC ---
Discharge Care Plan Diagnosis: (1) C. difficile diarrhea (2) Gastroenteritis due to norovirus Your Health Problems Are: Irregular Bowel Function Goals to Promote Your Health * To prevent worsening of your condition and complications * To maintain your health at the optimal level Directions to Meet Your Goals Take your medications as prescribed Follow your dietary instruction Follow activity as directed Keep your appointments as scheduled Take your immunizations and boosters as scheduled If your symptoms worsen call your PCP, if no PCP go to Urgent Care Center or Emergency Room Smoking is Dangerous to Your Health. Avoid second hand smoke Call the 24-hour hour crisis hotline for domestic abuse at Jolie Clark PA-C Apr 15, 2016 14:35
[2016-04-15 16:44] VITALS: BP 168/76; PULSE 71; RESP 18; TEMP 98.5; O2SAT 96
== END 2016-04-15 17:59 | disposition home or self-care (01) ==
LOC: NEPC 23:27 → NEDA 04-14 03:35 → NEPGCP 04-14 13:57
PROVIDERS: ADMIT Internal Medicine; ATTEND Internal Medicine
DX: A04.7 Enterocolitis due to Clostridium difficile (principal); A08.11 Acute gastroenteropathy due to Norwalk agent; E86.0 Dehydration; E03.9 Hypothyroidism, unspecified; E87.2 Acidosis; E87.6 Hypokalemia; K58.9 Irritable bowel syndrome, unspecified; F41.9 Anxiety disorder, unspecified; K29.80 Duodenitis without bleeding; F32.9 Major depressive disorder, single episode, unspecified; F40.240 Claustrophobia; Z87.891 Personal history of nicotine dependence; Z90.49 Acquired absence of other specified parts of digestive tract; E07.9 Disorder of thyroid, unspecified
CPT/HCPCS: 74177; 80048; 80053; 83605; 83690; 83880; 85025; 85610; 85730; 87040; 87205; 87493; 87506; 87804; 93005; 96361; 96374; 96375; 96376; 99285; C9113; G0378; J0744; J1650; J1885; J2060; J2405; J3480; J7030; Q9967

== ENCOUNTER → 2016-08-06 | Outpatient (CLI) | payer MEDICARE, BC ==
[~2016-08-06] MED LIST changes: -ALBU6.7H INH; -ASCO500C PO; -BUDE100T PO; +BUPR100T4 PO; +BUTA1CAP5 PO; -BUTACAP4 PO; -COLE625 PO; +LEVO.075 PO; -LOMO PO; +LOMO2.5T PO; -MEDR4PAK3 PO; +METR-1 PO; +PANT40TA3 PO; -PROZ20CA11 PO; +PROZ40CA PO; -SYNT75TA PO; +WELC625T2 PO
[2016-08-06 13:25] LABS: AUTOMATED NEUTROPHIL # 3.7 TH/MM3 (1.8-7.7); BASOPHIL % 0.5 % (0.0-2.0); EOSINOPHIL # 0.3 TH/MM3 (0-0.4); EOSINOPHIL % 4.2 % (0.0-4.0); HEMO FLAGS DIFF FINAL; LYMPH % 32.1 % (9.0-44.0); LYMPHOCYTE # 2.2 TH/MM3 (1.0-4.8); MEAN CELL VOLUME 88.2 FL (80.0-100.0); MEAN CORPUSCULAR HEMOGLOBIN 29.9 PG (27.0-34.0); MEAN CORPUSCULAR HGB CONC 33.9 % (32.0-36.0); MONO % 9.9 % (0.0-8.0); NEUT % 53.3 % (16.0-70.0); PLATELET COUNT 237 TH/MM3 (150-450); RED BLOOD COUNT 4.31 MIL/MM3 (4.00-5.30); RED CELL DISTRIBUTION WIDTH 14.2 % (11.6-17.2)
[2016-08-06 13:41] LABS: BACTERIA, URINE OCC /hpf; BLOOD, URINE NEG (NEG); GLUCOSE,URINE NEG (NEG); HYALINE CAST, URINE 8 /lpf (RARE); KETONE, URINE NEG (NEG); MUCUS URINE FEW /lpf (OCC); NITRITE,URINE NEG (NEG); PH, URINE 5.5 (5.0-8.5); SQUAMOUS EPITHELIAL CELL URINE 33 /hpf (0-5); URINE COLOR YELLOW (YELLW/STRAW)
[2016-08-06 14:15] LABS: ALKALINE PHOSPHATASE 89 U/L (45-117); ALT (GPT) 23 U/L (10-53); ANION GAP 9 MEQ/L (5-15); AST (GOT) 19 U/L (15-37); BICARBONATE 25.7 MEQ/L (21.0-32.0); BLOOD UREA NITROGEN 20 MG/DL (7-18); CHLORIDE 103 MEQ/L (98-107); GLOMERULAR FILTRATION RATE 77 ML/MIN (>89); GLUCOSE,FASTING 94 MG/DL (74-99); HDL CHOLESTEROL 95.3 MG/DL (40.0-60.0); LDL CHOLESTEROL 216 MG/DL (0-99); LDL CHOLESTEROL DIRECT 206 MG/DL (0-99); POTASSIUM 4.6 MEQ/L (3.5-5.1); SODIUM (NA) 138 MEQ/L (136-145); TOTAL BILIRUBIN ADULT 0.3 MG/DL (0.2-1.0)
[2016-08-06 15:07] LABS: HEMOGLOBIN A1b 1.9 %; HEMOGLOBIN Ao 85.3 %; HEMOGLOBIN P3 3.6 %
== END ==
LOC: PLAB 07-30 11:25
PROVIDERS: ATTEND Family Medicine
DX: E03.9 Hypothyroidism, unspecified (principal); E78.5 Hyperlipidemia, unspecified; R73.09 Other abnormal glucose; M85.80 Other specified disorders of bone density and structure, unspecified site; E66.3 Overweight; R19.7 Diarrhea, unspecified; Z51.81 Encounter for therapeutic drug level monitoring; Z78.0 Asymptomatic menopausal state
CPT/HCPCS: 36415; 80053; 80061; 81001; 83036; 83721; 84443; 85025

== ENCOUNTER → 2017-02-04 | Outpatient (CLI) | payer MEDICARE, BC ==
[2017-02-04 16:16] LABS: BACTERIA, URINE OCC /hpf; BLOOD, URINE NEG (NEG); GLUCOSE,URINE NEG (NEG); HYALINE CAST, URINE 3 /lpf (RARE); KETONE, URINE NEG (NEG); MUCUS URINE FEW /lpf (OCC); NITRITE,URINE NEG (NEG); PH, URINE 5.5 (5.0-8.5); SQUAMOUS EPITHELIAL CELL URINE 38 /hpf (0-5); URINE COLOR YELLOW (YELLW/STRAW)
[2017-02-04 16:20] LABS: BASOPHIL # 0.1 TH/MM3 (0-0.2); BASOPHIL % 0.8 % (0.0-2.0); EOSINOPHIL # 0.4 TH/MM3 (0-0.4); EOSINOPHIL % 5.7 % (0.0-4.0); HEMATOCRIT 38.5 % (35.0-46.0); HEMO FLAGS DIFF FINAL; LYMPH % 32.1 % (9.0-44.0); LYMPHOCYTE # 2.5 TH/MM3 (1.0-4.8); MEAN CORPUSCULAR HEMOGLOBIN 29.9 PG (27.0-34.0); MEAN CORPUSCULAR HGB CONC 33.6 % (32.0-36.0); MONO % 9.2 % (0.0-8.0); NEUT % 52.2 % (16.0-70.0); PLATELET COUNT 212 TH/MM3 (150-450); RED BLOOD COUNT 4.33 MIL/MM3 (4.00-5.30); RED CELL DISTRIBUTION WIDTH 13.8 % (11.6-17.2); WHITE BLOOD COUNT 7.6 TH/MM3 (4.0-11.0)
[2017-02-04 16:24] LABS: ALT (GPT) 30 U/L (10-53); ANION GAP 8 MEQ/L (5-15); AST (GOT) 29 U/L (15-37); BICARBONATE 25.7 MEQ/L (21.0-32.0); BLOOD UREA NITROGEN 18 MG/DL (7-18); CHLORIDE 105 MEQ/L (98-107); GLOMERULAR FILTRATION RATE 79 ML/MIN (>89); GLUCOSE,FASTING 78 MG/DL (74-99); POTASSIUM 4.1 MEQ/L (3.5-5.1); SODIUM (NA) 139 MEQ/L (136-145)
[2017-02-04 16:33] LABS: ALKALINE PHOSPHATASE 83 U/L (45-117); LDL CHOLESTEROL 86 MG/DL (0-99); LDL CHOLESTEROL DIRECT 99 MG/DL (0-99); TOTAL BILIRUBIN ADULT 0.3 MG/DL (0.2-1.0)
== END ==
LOC: PLAB 10:57
PROVIDERS: ATTEND Family Medicine
DX: E03.9 Hypothyroidism, unspecified (principal); E78.5 Hyperlipidemia, unspecified; Z51.81 Encounter for therapeutic drug level monitoring
CPT/HCPCS: 36415; 80053; 80061; 81001; 83721; 84443; 85025

== ENCOUNTER → 2017-05-27 | Outpatient (CLI) | payer MEDICARE ==
[~2017-05-27] MED LIST changes: +COLE625 PO; -WELC625T2 PO
[2017-05-27 12:05] LABS: ALBUMIN 3.9 GM/DL (3.4-5.0); ALT (GPT) 23 U/L (10-53); AST (GOT) 22 U/L (15-37); BICARBONATE 23.4 MEQ/L (21.0-32.0); BLOOD UREA NITROGEN 15 MG/DL (7-18); CALCIUM 8.9 MG/DL (8.5-10.1); CHLORIDE 108 MEQ/L (98-107); CHOLESTEROL 330 MG/DL (120-200); CREATININE 0.75 MG/DL (0.50-1.00); GLOMERULAR FILTRATION RATE 76 ML/MIN (>89); GLUCOSE,FASTING 100 MG/DL (74-99); SODIUM (NA) 139 MEQ/L (136-145)
[2017-05-27 12:31] LABS: ALKALINE PHOSPHATASE 87 U/L (45-117); HDL CHOLESTEROL 94.1 MG/DL (40.0-60.0); LDL CHOLESTEROL 174 MG/DL (0-99); LDL CHOLESTEROL DIRECT 170 MG/DL (0-99); TOTAL BILIRUBIN ADULT 0.3 MG/DL (0.2-1.0); TOTAL PROTEIN 7.5 GM/DL (6.4-8.2); TRIGLYCERIDES 311 MG/DL (42-150)
== END ==
LOC: CLAB 11:23
PROVIDERS: ATTEND Family Medicine
DX: E78.5 Hyperlipidemia, unspecified (principal); E53.8 Deficiency of other specified B group vitamins
CPT/HCPCS: 36415; 80053; 80061; 82607; 83721

== ENCOUNTER → 2017-09-08 | Outpatient (CLI) | payer MEDICARE ==
[2017-09-08 13:45] LABS: ALT (GPT) 28 U/L (10-53); AST (GOT) 31 U/L (15-37); BICARBONATE 24.3 MEQ/L (21.0-32.0); BLOOD UREA NITROGEN 14 MG/DL (7-18); CALCIUM 9.2 MG/DL (8.5-10.1); CHLORIDE 104 MEQ/L (98-107); CHOLESTEROL 194 MG/DL (120-200); CREATININE 0.77 MG/DL (0.50-1.00); GLOMERULAR FILTRATION RATE 73 ML/MIN (>89); GLUCOSE,RANDOM 86 MG/DL (74-106); SODIUM (NA) 140 MEQ/L (136-145); TRIGLYCERIDES 146 MG/DL (42-150)
[2017-09-08 13:46] LABS: ALKALINE PHOSPHATASE 90 U/L (45-117); CHOLESTEROL/ HDL RATIO 1.86 RATIO; HDL CHOLESTEROL 104.2 MG/DL (40.0-60.0); LDL CHOLESTEROL 61 MG/DL (0-99); LDL CHOLESTEROL DIRECT 71 MG/DL (0-99); TOTAL BILIRUBIN ADULT 0.2 MG/DL (0.2-1.0); TOTAL PROTEIN 7.5 GM/DL (6.4-8.2)
[2017-09-08 22:25] LABS: ALB/GLOB RATIO (SPE) 1.8 (1.39-2.23)
== END ==
LOC: CLAB 12:25
PROVIDERS: ATTEND Family Medicine
DX: E03.9 Hypothyroidism, unspecified (principal); E78.5 Hyperlipidemia, unspecified; G62.9 Polyneuropathy, unspecified
CPT/HCPCS: 80053; 80061; 81003; 83721; 84165; 84443

== ENCOUNTER → 2017-09-19 | Outpatient (CLI) | payer MEDICARE ==
[2017-09-19 14:33] LABS: KAPPA LAMBDA RATIO 1.81 (1.57-3.93)
[2017-09-19 21:53] LABS: ALB/GLOB RATIO (SPE) 1.82 (1.39-2.23)
== END ==
LOC: CLAB 11:49
PROVIDERS: ATTEND Family Medicine
DX: D47.2 Monoclonal gammopathy (principal)
CPT/HCPCS: 36415; 82784; 83883; 84165; 86334; 86335